=== PATIENT | male | born 1960 ===

== ENCOUNTER 2018-03-06 22:33 | Emergency (ER) | payer BC ==
[~2018-03-06] VITALS: Ht 195.6 cm; Wt 113.4 kg
--- NOTE | 2018-03-06 23:00 | NUR ---
Pt ambulates to ER with stable gait with the c/o high blood pressure. When asked, pt unable to provide blood pressure reading from home. Per , pt drank ETOH over the holidays. Pt states that he has been feeling nauseous since. Pt is AAO x 4. Pt denies dizziness, changes in vision, CP and SOB. Pt placed on monitor. BP 150/94, HR 78. Safe environment implemented.
--- NOTE | 2018-03-06 23:03 | NUR ---
Dr. Law at bedside for MSE.
[2018-03-06] MEDS ORDERED: IV NORMAL SALINE 1000 ML BAG IV ONE (23:15)
[2018-03-06] MEDS ORDERED: PANTOPRAZOLE SODIUM 40 MG VIAL IV ONE (23:15)
[2018-03-06] MEDS ORDERED: ONDANSETRON 4 MG/2 ML VIAL IV ONE (23:15)
[2018-03-06] MEDS ORDERED: ONDANSETRON 4 MG/2 ML VIAL ONE (23:17)
[2018-03-06] MEDS ORDERED: PANTOPRAZOLE SODIUM 40 MG VIAL ONE (23:18)
[2018-03-06 23:26] LABS: BASOPHILS % (AUTO) 0.4 % (0.0-2.0); EOSINOPHILS % (AUTO) 0.4 % (0.0-7.0); HEMATOCRIT 46.4 % (36.7-47.1); HEMOGLOBIN 16.1 g/dL (12.5-16.3); LYMPHOCYTES % (AUTO) 9.9 % (20.5-51.5); MEAN CORPUSCULAR HEMOGLOBIN 31.6 uug (23.8-33.4); MEAN CORPUSCULAR HGB CONC 35 g/dL (32.5-36.3); MEAN CORPUSCULAR VOLUME 91.5 fL (73.0-96.2); MONOCYTES # (AUTO) 0.7 K/uL (2.0-10.0); MONOCYTES % (AUTO) 6.3 % (0.0-11.0); NEUTROPHILS # (AUTO) 8.7 K/uL (1.8-8.9); PLATELET COUNT (AUTO) 202 K/uL (152-348); RED BLOOD CELL COUNT(AUTO) 5.08 MIL/uL (4.06-5.63); WHITE BLOOD COUNT (AUTO) 10.4 K/uL (3.6-10.2)
[2018-03-06 23:29] LABS: POTASSIUM 3.9 mmol/L (3.5-5.1)
[2018-03-06 23:39] LABS: BILIRUBIN,DIRECT 0.3 mg/dL (0.0-0.2); BILIRUBIN,TOTAL 1.1 mg/dL (0.2-1.0); TOTAL PROTEIN, SERUM 8.3 g/dL (6.4-8.2)
[2018-03-07] MEDS ORDERED: LORAZEPAM 2 MG/1 ML VIAL IV ONE (00:15)
[2018-03-07] MEDS ORDERED: LORAZEPAM 2 MG/1 ML VIAL ONE (00:18)
--- NOTE | 2018-03-07 00:26 | NUR ---
Patient discharged to home in stable conditon. Written and verbal after care instructions given. Patient verbalizes understanding of instructions. Pt instructed not to drive, per she will drive patient home. All belongings taken.
[2018-03-07 00:40] VITALS: BP 139/96
== END 2018-03-07 00:30 | disposition home or self-care (01) ==
LOC: ER 22:35
DX: F10.129 Alcohol abuse with intoxication, unspecified (principal); Y90.9 Presence of alcohol in blood, level not specified; R11.10 Vomiting, unspecified; R19.7 Diarrhea, unspecified
CPT/HCPCS: 36415; 80048; 80076; 84484; 85025; 93005; 96374; 96375; 99284; C9113; J2060; J2405; 70030-TC; A4663; J7030